=== PATIENT | male | born 1985 | race Caucasian/White ===

== ENCOUNTER 2017-01-24 20:46 | Emergency (ER) | payer OTHER ==
[2017-01-24 20:51] VITALS: BP 139/83; PULSE 96; TEMP 98.2; BMI 28.1
--- NOTE | 2017-01-24 21:34 | PDOC ---
History of Present Illness - General Chief Complaint: Sore Throat Stated Complaint: SORE THROAT Time Seen by Provider: 01/24/17 21:27 - History of Present Illness Initial Comments: 01/24/17 21:41 Pt. is a 31 y/o male with no PMH presenting to [facility] c/o sore throat, fevers, chills, and cough for 3 days. Pt. states that his symptoms have gotten worse:: over the past 3 days. Admits to subjective fevers, chills, body aches, sore throat, rhinorrhea, and congestion. Motrin, Dayquil and Tylenol help his symptoms, but he is concerned because, "once the medication wears off, I feel bad again." Pt. denies weight loss, weakness, dizziness, visual changes, dry eyes, ear fullness/pain, sinus pain, N/V/D, bowel changes, frequency, urgency, dysuria. Pt. states he did not receive a flu shot this year. Past History - Past Medical History Allergies/Adverse Reactions: Allergies Allergy/AdvReac Type Severity Reaction Status Date / Time No Known Allergies Allergy Verified 01/24/17 20:51 Home Medications: Ambulatory Orders NK [No Known Home Medication] 12/28/15 Kidney Stones: Yes - Psycho/Social/Smoking Cessation Hx Anxiety: No Suicidal Ideation: No Smoking Status: No Smoking History: Never smoked Have you smoked in the past 12 months: No Number of Cigarettes Smoked Daily: 0 Hx Alcohol Use: No Drug/Substance Use Hx: No Substance Use Type: Alcohol *Physical Exam - Vital Signs Last Vital Signs Temp Pulse Resp BP Pulse Ox 98.2 F 96 H 18 139/83 99 01/24/17 20:48 01/24/17 20:48 01/24/17 20:48 01/24/17 20:48 01/24/17 20:48 - Physical Exam General Appearance: Yes: Nourished, Appropriately Dressed. No: Apparent Distress HEENT: positive: EOMI, STU, Pharyngeal Erythema, Tonsillar Erythema (1+ tonsils ), Rhinorrhea, TM Dull. negative: Sinus Tenderness, Excessive drooling Neck: positive: Trachea midline, Normal Thyroid, Supple. negative: Tender, Lymphadenopathy (R), Lymphadenopathy (L) Respiratory/Chest: positive: Lungs Clear, Normal Breath Sounds. negative: Respiratory Distress, Accessory Muscle Use, Rhonchi, Stridor, Wheezing Cardiovascular: positive: Regular Rhythm, Regular Rate, S1, S2 (present) Gastrointestinal/Abdominal: positive: Normal Bowel Sounds, Flat, Soft. 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 is a 31 y/o male with no PMH who presents with 3 days of flu like symptoms. At this time will r/o strep pharyngitis, but flu seems more likely. Given 3 days of symptoms, will hold flu culture as treatment at this time is purely supportive. Will give Robitussin and ibuprofen now. Re-evaluate 01/24/17 22:36 Strep culture is negative at this time. Pt. states the Robitussin and ibuprofen helped and he is ready to go home. Will discharge home with instructions on symptomatic relief for the flu. Pt. states he understands all discharge instructions and all questions were answered at this time. *DC/Admit/Observation/Transfer Diagnosis at time of Disposition: Flu-like symptoms - Discharge Dispostion Disposition: HOME Condition at time of disposition: Stable Admit: No - Referrals Referrals: Missy Hassan MD [Primary Care Provider] - - Patient Instructions Printed Discharge Instructions: DI for Influenza -- Adult Additional Instructions: You have the flu. Your strep test today was negative. Drink plenty of fluids and get plenty of rest. You may still feel sick for 3-5 days. Take Motrin every 6 hours to help with your symptoms. Ice pops and honey will help with the sore throat. You may also take decongestants such as Robitussin. Return to the ED if there are any changes in your symptoms, fevers are not controlled by Motrin, or if you have any new symptoms
[2017-01-24] MEDS ORDERED: IBUPROFEN 600 MG TABLET (FP) PO ONE ×2 (21:58→22:06)
[2017-01-24] MEDS ORDERED: guaiFENesin 200 MG/10 ML 10 ML UNIT-DOSE CUPS PO ONE (21:58)
[2017-01-24] MEDS ORDERED: guaiFENesin/D-METHORPHAN HB 10 ML UNIT-DOSE CUPS ONE (22:06)
== END 2017-01-24 22:39 | disposition home or self-care (01) ==
LOC: JERFT 20:46
DX: J11.1 Influenza due to unidentified influenza virus with other respiratory manifestations (principal)
CPT/HCPCS: 87070; 87430; 99281-25